=== PATIENT | male | born 1980 | race Caucasian/White ===

== ENCOUNTER 2024-10-17 23:54 | Emergency (ER) | payer MEDICAID ==
[~2024-10-17] VITALS: Ht 172.7 cm; Wt 83.4 kg
[2024-10-17 23:58] VITALS: O2SAT 99
[2024-10-18 00:07] VITALS: PULSE 70; TEMP 36.9; O2SAT 98
[2024-10-18] MEDS: KETOROLAC 30MG/ML VIAL IM ONE (02:00)
[2024-10-18] MEDS ORDERED: NAPR-1176 MT (03:13)
[2024-10-18] MEDS ORDERED: LIDO700A15 TP (03:13)
[2024-10-18 03:36] VITALS: BP 137/80; RESP 14
[2024-10-18] MEDS: LIDOCAINE 5% PATCH TOP SCH (03:36)
== END 2024-10-18 03:44 | disposition home or self-care (01) ==
LOC: ER 23:54
DX: M54.9 Dorsalgia, unspecified (principal); I10 Essential (primary) hypertension; Z79.1 Long term (current) use of non-steroidal anti-inflammatories (NSAID)
CPT/HCPCS: 99283; 96372; J1885

== ENCOUNTER 2024-10-19 18:17 | Emergency (ER) | payer MEDICAID ==
[~2024-10-19] VITALS: Ht 170.2 cm; Wt 85.0 kg
[~2024-10-19 18:17] MED LIST: LIDO700A15 TP; NAPR-1176 MT
[2024-10-19 18:32] VITALS: TEMP 36.7; O2SAT 98
[2024-10-19 19:09] LABS: BASOPHILS % 0.4 % (0.0-2.0); EOSINOPHILS % 0.3 % (0.0-5.0); HEMATOCRIT. 42.7 % (42.0-52.0); HEMOGLOBIN. 14.2 g/dL (14.0-18.0); LYMPHOCYTES % 22.8 % (20.0-50.0); MEAN CORPUSCULAR HEMOGLOBIN 29.4 pg (28.0-32.0); MEAN CORPUSCULAR HGB CONC 33.2 g/dL (31.0-37.0); MEAN CORPUSCULAR VOLUME 88.6 fL (80.0-94.0); MEAN PLATELET VOLUME 9.3 fl (7.4-10.4); MONOCYTES % 6.2 % (2.0-8.0); NEUTROPHILS % 70.3 % (40.0-76.0); PLATELET 217 x1000/uL (130-400); RED BLOOD CELL COUNT 4.82 mill/uL (4.7-6.1); RED CELL DISTRIBUTION WIDTH 13.3 % (11.6-14.6); WHITE BLOOD COUNT 8.5 x1000/uL (4.5-11.0)
[2024-10-19 19:19] LABS: CHLORIDE 107 mEq/L (98-107); POTASSIUM 3.6 mEq/L (3.5-5.1); SODIUM 141 mEq/L (136-145)
[2024-10-19 19:20] LABS: CALCIUM 9.7 mg/dL (8.7-10.4); CARBON DIOXIDE 28 mEq/L (21-32)
[2024-10-19 19:25] LABS: CREATININE 0.7 mg/dL (0.6-1.3); GLUCOSE 120 mg/dL (70-105); UREA NITROGEN BLOOD 12 mg/dL (9-23)
[2024-10-19 21:39] LABS: CLARITY URINE CLEAR (CLEAR); COLOR URINE YELLOW (YELLOW); GLUCOSE URINE NEGATIVE (NEGATIVE); KETONES URINE NEGATIVE (NEGATIVE); LEUKOCYTE ESTERASE URINE NEGATIVE (NEGATIVE); NITRITE URINE NEGATIVE (NEGATIVE); OCCULT BLOOD URINE 3+ (NEGATIVE); PROTEIN URINE NEGATIVE (NEGATIVE); SPECIFIC GRAVITY URINE 1.019 (1.005-1.030); UROBILINOGEN URINE 0.2 E.U./dL (0.2-1.0)
[2024-10-19 22:01] LABS: BACTERIA URINE NONE SEEN; SQUAMOUS EPITHELIAL CELL URINE RARE /lpf (RARE/1+); WBC URINE NONE SEEN /hpf (0-2)
[2024-10-20] MEDS ORDERED: TAMS-54 MT (00:42)
[2024-10-20 01:58] VITALS: BP 152/77; PULSE 65; RESP 14; O2SAT 99
== END 2024-10-20 01:06 | disposition home or self-care (01) ==
LOC: ER 18:17
DX: N23 Unspecified renal colic (principal); I10 Essential (primary) hypertension; Z79.1 Long term (current) use of non-steroidal anti-inflammatories (NSAID)
CPT/HCPCS: 36415; 74176; 80048; 81003; 85025; 99284